=== PATIENT | male | born 1990 | race Caucasian/White ===

== ENCOUNTER 2023-03-21 13:25 | Emergency (ER) | payer OTHER, SELFPAY ==
--- NOTE | ~2023-03-21 | CT_ITS ---
EXAMINATION: CT ABDOMEN AND PELVIS WITHOUT CONTRAST CLINICAL INFORMATION: Left flank pain and hematuria. COMPARISON: None available. TECHNIQUE: Multidetector volumetric imaging was performed from the superior aspect of the liver through the pubic symphysis. Sagittal and coronal reformatted images were obtained on the technologist's workstation. This CT examination was performed using dose optimization techniques as appropriate, variously including the following: *Automated exposure control *Adjustment of mA and/or kV according to patient size (this includes techniques or standardized protocols for targeted exams where dose is matched to indication/reason for exam; i.e. extremities or head) *Use of iterative reconstruction technique DLP: 348 mGy-cm FINDINGS: LUNG BASES: The visualized lung bases are unremarkable. LIVER, GALLBLADDER, AND BILIARY TREE: The liver is normal in size, shape, and attenuation. No focal hepatic lesion or biliary ductal dilatation is present. The gallbladder is unremarkable with no evidence of radiopaque gallstones, gallbladder wall thickening, or obvious pericholecystic inflammatory changes. PANCREAS: Unremarkable. SPLEEN: Unremarkable. ADRENAL GLANDS: Unremarkable. KIDNEYS AND URETERS: The kidneys are normal in size, shape, and attenuation. No hydronephrosis, hydroureter, or calculi seen. No perinephric stranding. BLADDER: Unremarkable. GASTROINTESTINAL TRACT: Stool throughout the colon questionable for constipation. The small and large bowel are otherwise unremarkable. The appendix is unremarkable. ABDOMINAL WALL: No significant hernia is appreciated. LYMPH NODES: Normal. VASCULAR: Unremarkable. PELVIC VISCERA: Unremarkable. OSSEOUS STRUCTURES: Degenerative disc disease at L4-L5 and L5-S1. CT/CT abdomen pelvis wo IV con IMPRESSION: No stone or hydronephrosis. Fleischner guidelines were followed.
[2023-03-21 13:42] VITALS: BP 117/70; PULSE 69; RESP 18; TEMP 36.7; O2SAT 96; BMI 19.5
--- NOTE | 2023-03-21 13:43 | ED_ITS ---
HPI - Abdominal Pain General Chief Complaint: Urogenital-Male <BOBBI River - Last Filed: 03/21/23 13:45> Stated Complaint: Blood in urine/L side back pain <BOBBI River - Last Filed: 03/21/23 13:45> Time Seen by Provider: 03/21/23 14:10 <BOBBI River - Last Filed: 03/21/23 13:45> Source: patient <BOBBI Chi - Last Filed: 03/21/23 16:05> Mode of arrival: ambulatory <BOBBI Chi - Last Filed: 03/21/23 16:05> Limitations: no limitations <BOBBI Chi Last Filed: 03/21/23 16:05> History of Present Illness HPI narrative: Patient is a 32 year old assigned male at with no reported medical history presenting to the emergency department today after an episode of blood in his urine. Patient states that 2 days ago he had an episode of blood in his urine but has not had any since. Patient denies any dizziness, lightheadedness, abdominal pain, nausea, vomiting, fever, chills, blurry vision, double vision, loss of vision, chest pain, difficulty breathing, shortness of breath, back pain, night sweats, pain with urination, increased urinary frequency, increased urinary urgency, blood in his stool, syncope or a near syncopal episode, recent trauma or falls, bowel incontinence, bladder incontinence, bowel retention, bladder retention, or any other complaints at this time. <BOBBI Chi - Last Filed: 03/21/23 16:05> Related Data Home Medications: Previous Rx's Medication Instructions Recorded tizanidine 4 mg tablet 4 mg PO TID PRN for muscle spasm 12/28/21 #90 tabs <BOBBI River Last Filed: 03/21/23 13:45> Allergies/Adverse Reactions: Allergies Allergy/AdvReac Type Severity Reaction Status Date / Time acetaminophen [From TYLENOL] Allergy Mild BLOTCHY Verified 03/21/23 13:42 AND ITCHY amoxicillin Allergy Unknown anaphylaxis, Verified 03/21/23 13:42 hives penicillin G Allergy Unknown hives, Verified 03/21/23 13:42 anaphylaxis Penicillins [PENICILLINS] Allergy Unknown THROAT Verified 03/21/23 13:42 SWELLING AND RASH <Martina Bennett DC - Last Filed: 03/21/23 13:45> Review of Systems Constitutional: Reports no additional constitutional complaints, Denies chills, Denies fever(s) and Denies night sweats <BOBBI Chi Last Filed: 03/21/23 16:05> Eyes: Reports no additional eye complaints, Denies blurry vision, Denies change in vision, Denies diplopia, Denies eye discharge, Denies loss of vision and Denies eye pain <BOBBI Chi Last Filed: 03/21/23 16:05> Denies dizziness <BOBBI Chi Last Filed: 03/21/23 16:05> Cardiovascular: Reports no additional cardiovascular complaints, Denies chest pain, Denies lightheadedness, Denies Loss of Consciousness and Denies dyspnea <BOBBI Chi Last Filed: 03/21/23 16:05> Respiratory: Reports no additional respiratory complaints and Denies dyspnea <BOBBI Chi Last Filed: 03/21/23 16:05> Gastrointestinal: Reports no additional gastrointestinal complaints, Denies abdominal pain, Denies melena, Denies hematochezia, Denies change in bowel habits and Denies change in stool character <BOBBI Chi Last Filed: 03/21/23 16:05> Genitourinary: Reports no additional male genitourinary complaints, Reports hematuria, Denies oliguria, Denies difficulty urinating, Denies dysuria, Denies urinary frequency, Denies urinary hesitancy, Denies urinary incontinence and Denies urinary urgency <BOBBI Chi - Last Filed: 03/21/23 16:05> Musculoskeletal: Reports no additional musculoskeletal complaints, Denies numbness and Denies tingling <BOBBI Chi Last Filed: 03/21/23 16:05> Denies dizziness, Denies loss of vision, Denies numbness and Denies tingling <BOBBI Chi Last Filed: 03/21/23 16:05> Psychiatric: Reports no additional psychiatric complaints <BOBBI Chi Last Filed: 03/21/23 16:05> Endocrine: Reports no additional endocrine complaints <BOBBI Chi - Last Filed: 03/21/23 16:05> Hematologic/Lymphatic: Reports no additional hematologic/lymphatic complaints <BOBBI Chi - Last Filed: 03/21/23 16:05> Allergic/Immunologic: Reports no additional allergic/immunologic complaints <BOBBI Chi - Last Filed: 03/21/23 16:05> PMFSH Past Medical History Attestation statement: The following information was validated with the patient. <BOBBI Chi - Last Filed: 03/21/23 16:05> Source: old records reviewed and nursing notes reviewed <BOBBI Chi - Last Filed: 03/21/23 16:05> Social History Social History: Social History Advance Directives: No Advance Directives Information Provided: Yes <BOBBI River - Last Filed: 03/21/23 13:45> Physical Exam ED Vital Signs: Vital Signs - 24 hr 03/21/23 13:42 Temperature 98.1 F Pulse Rate 69 Respiratory Rate 18 Blood Pressure 117/70 Pulse Oximetry 96 Oxygen Delivery Method Room Air BMI result Body Mass Index 19.5 <BOBBI River - Last Filed: 03/21/23 13:45> Vital Signs - 24 hr 03/21/23 13:42 Temperature 98.1 F Pulse Rate 69 Respiratory Rate 18 Blood Pressure 117/70 Pulse Oximetry 96 Oxygen Delivery Method Room Air BMI result Body Mass Index 19.5 <BOBBI Chi Last Filed: 03/21/23 16:05> Const General: cooperative, no acute distress, alert and awake <BOBBI Chi - Last Filed: 03/21/23 16:05> Nutritional Appearance: well nourished <BOBBI Chi - Last Filed: 03/21/23 16:05> Orientation/consciousness: patient oriented x3 <BOBBI Chi - Last Filed: 03/21/23 16:05> Limitations: no limitations <BOBBI Chi Last Filed: 03/21/23 16:05> HENMT Head: Yes normal to inspection and Yes atraumatic <BOBBI Chi - Last Filed: 03/21/23 16:05> Ears: hearing grossly normal bilaterally and external ears normal <Flavia Moctezuma DC - Last Filed: 03/21/23 16:05> General nose exam: Normal external nose present, no nasal discharge noted and no epistaxis <Flavia Moctezuma [facility] Last Filed: 03/21/23 16:05> Face and sinus: Yes normal facial exam, No abrasion and No laceration <Flavia Moctezuma [facility] Last Filed: 03/21/23 16:05> Mouth: Normal oral and palatal mucosa present, no drooling and no muffled voice <Flavia Moctezuma [facility] Last Filed: 03/21/23 16:05> Eyes General: appearance normal, both eyes and all related structures <Flavia Evanselio [facility] Last Filed: 03/21/23 16:05> Periorbital: periorbital findings normal <Flavia Moctezuma [facility] Last Filed: 03/21/23 16:05> Eyelids: Yes eyelids normal <Flavia Moctezuma [facility] Last Filed: 03/21/23 16:05> Conjunctivae: conjunctivae normal <Flavia Moctezuma [facility] Last Filed: 03/21/23 16:05> Pupils: Equal, round and reactive pupils present <Flavia Evanselio [facility] Last Filed: 03/21/23 16:05> EOM: EOMs intact bilaterally <Flavia Evanselio [facility] Last Filed: 03/21/23 16:05> Neck Neck: Yes normal visual inspection, Yes full ROM and Yes no lymphadenopathy <Cheo Evanselio DC - Last Filed: 03/21/23 16:05> Chest Chest palpation & inspection: normal inspection of the chest <Flavia Rhianna [facility] Last Filed: 03/21/23 16:05> Resp Effort & Inspection: normal respiratory effort and able to speak in complete sentences <Flavia Rhianna DC - Last Filed: 03/21/23 16:05> GI Inspection: Yes normal to inspection <Flavia Evanselio [facility] Last Filed: 03/21/23 16:05> Palpation (GI): Soft to palpation, not firm, nontender and no guarding <Flavia Rhianna DC - Last Filed: 03/21/23 16:05> General: Yes no CVA tenderness <Flavia Evanselio PA - Last Filed: 03/21/23 16:05> Male General Exam: Yes normal external exam <Flaviaholly EvansBOBBI ballard - Last Filed: 03/21/23 16:05> Back/Spine/Pelvis Back: no CVA tenderness <Flavia Evanselio PA - Last Filed: 03/21/23 16:05> Neuro General: patient oriented x3 and moves all extremities <BOBBI Chi - Last Filed: 03/21/23 16:05> Cranial nerves: Yes Equal, round and reactive pupils present <Flavia Moctezuma, PA - Last Filed: 03/21/23 16:05> Cognition (Neuro): normal cognition <Flavia BOBBI Moctezuma - Last Filed: 03/21/23 16:05> Motor exam (neuro): 5/5 motor strength present throughout <BOBBI Chi - Last Filed: 03/21/23 16:05> Sensory Exam: Normal double simultaneous stimulation for sensation <Flavia Moctezuma PA - Last Filed: 03/21/23 16:05> Coordination: [id number] test normal <Flavia Moctezuma, DC - Last Filed: 03/21/23 16:05> Extrem General: Yes normal to inspection, Yes full ROM and Yes capillary refill normal <Flavia Rhianna PA - Last Filed: 03/21/23 16:05> Psych Appearance: grossly normal <BOBBI Chi - Last Filed: 03/21/23 16:05> Mental Status: mental status grossly normal <BOBBI Chi - Last Filed: 03/21/23 16:05> Affect: normal affect <BOBBI Chi - Last Filed: 03/21/23 16:05> Attitude: cooperative <BOBBI Chi - Last Filed: 03/21/23 16:05> Thought process: Normal thought process present <BOBBI Chi - Last Filed: 03/21/23 16:05> Thought content: Normal thought content present <BOBBI Chi - Last Filed: 03/21/23 16:05> Insight: Good insight present (Psych) <BOBBI Chi - Last Filed: 03/21/23 16:05> Course Course Course Narrative: RME - 32 yo male presents to the ER for evaluation of flank pain that started yesterday along with drops of blood in his urine a few times 3 days ago. +pain with urination and sensation of incomplete emptying. No vomiting or fevers. Plan: UA, labs, dry CT abd/pelvis to r/o stone <BOBBI River - Last Filed: 03/21/23 13:45> Medical Decision Making Medical Decision Making [facility] Narrative: Patient is a 32 year old assigned male at with no reported medical history presenting to the emergency department today after an episode of hematuria. Patient's physical exam was unremarkable. Patient's blood work was unremarkable. Patient's urine showed no acute process. Patient's abdomen/pelvis CT showed no acute process. I explained my physical exam findings as well as all test results to the patient. I answered all questions asked by the patient. I stressed the importance of the patient taking his medication as prescribed. I stressed the importance of the patient following up with his primary care provider. I stressed the importance of the patient returning to the emergency department immediately if his symptoms were to worsen or if he were to develop any dizziness, shortness of breath, difficulty breathing, chest pain, blurry vision, loss of vision, nausea, vomiting, abdominal pain, fever, chills, back pain, or any other complaints. Patient verbalized agreement and understanding with this treatment plan and discharge. <BOBBI Chi - Last Filed: 03/21/23 16:05> Differential Diagnosis Differential Diagnoses: The differential diagnosis associated with the presentation includes <BOBBI Chi - Last Filed: 03/21/23 16:05> hematuria, passed stone <BOBBI Chi - Last Filed: 03/21/23 16:05> Lab Data [facility] Lab Attestation statement: I reviewed the patient's lab results. <BOBBI Chi - Last Filed: 03/21/23 16:05> Result Diagrams: 03/21/23 14:39 03/21/23 14:39 <BOBBI River - Last Filed: 03/21/23 13:45> Labs: Lab Results 03/21/23 03/21/23 03/21/23 Range/Units 14:39 14:39 14:39 WBC 7.2 (4.8-10.8) X10*3/uL RBC 4.25 L (4.60-5.80) X10*6/uL Hgb 12.8 L (14.0-18.0) g/dl Hct 38.4 L (42.0-52.0) % MCV 90.4 (80.0-98.0) fL MCH 30.1 (27.0-33.0) pg MCHC 33.3 (31.0-36.0) g/dl RDW 12.2 (11.0-16.0) % Plt Count 178 (160-400) X10*3/uL MPV 9.4 (9.4-12.4) fL Immature Gran % (Auto) 0.3 (0.0-0.4) % Neut % (Auto) 64.7 (45-73) % Lymph % (Auto) 27.1 (20-40) % [place] % (Auto) 6.9 (2-11) % Eos % (Auto) 0.7 (0-4) % Baso % (Auto) 0.3 (0-2) % Lymph # (Auto) 2.0 (1.2-4.9) X10*3/uL [place] # (Auto) 0.5 (0.1-1.2) X10*3/uL Eos # (Auto) 0.1 (0.0-0.4) X10*3/uL Baso # (Auto) 0.0 (0.0-0.2) X10*3/uL Abs Immat Gran (auto) 0.02 (0.00-0.03) X10*3/uL Absolute Neuts (auto) 4.7 (2.0-8.3) x10*3/uL Absolute Nucleated RBC 0.000 (0.0-0.012) X10*3/uL Nucleated RBC % (auto) 0.0 (0.0-0.2) /100WBC Sodium 141 (135-145) mmol/L Potassium 4.0 (3.3-5.1) mmol/L Chloride 104 (96-108) mmol/L Carbon Dioxide 30 H (22-29) mmol/L Anion Gap 11 L (12-20) BUN 10 (9-16) mg/dL Creatinine 0.77 (0.5-1.4) mg/dL Estim Creat Clear Calc 130.5 Estimated GFR > 60 Random Glucose 102 (60-115) mg/dL Calcium 8.8 (8.4-10.2) mg/dL Magnesium 1.8 (1.6-2.6) mg/dL Total Bilirubin 0.4 (0.0-1.0) mg/dL Direct Bilirubin 0.1 (0.0-0.5) mg/dL AST 31 (5-37) U/L ALT 19 (0-40) U/L Alkaline Phosphatase 53 (39-117) U/L Total Protein 5.9 L (6.5-8.0) g/dL Albumin 4.1 (3.5-5.0) g/dL Urine Color Yellow Urine Appearance Clear Urine pH 6.0 (5.0-9.0) Ur Specific [place] 1.020 (1.005-1.025) Urine Protein Negative (Neg-Trace) mg/dL Urine Glucose (UA) Negative (Negative) mg/dL Urine Ketones Trace (Negative) mg/dL Urine Blood Negative (Negative) Urine Nitrite Negative (Negative) Ur Leukocyte Esterase Negative (Negative) <BOBBI River - Last Filed: 03/21/23 13:45> Lab Results 03/21/23 03/21/23 03/21/23 Range/Units 14:39 14:39 14:39 WBC 7.2 (4.8-10.8) X10*3/uL RBC 4.25 L (4.60-5.80) X10*6/uL Hgb 12.8 L (14.0-18.0) g/dl Hct 38.4 L (42.0-52.0) % MCV 90.4 (80.0-98.0) fL MCH 30.1 (27.0-33.0) pg MCHC 33.3 (31.0-36.0) g/dl RDW 12.2 (11.0-16.0) % Plt Count 178 (160-400) X10*3/uL MPV 9.4 (9.4-12.4) fL Immature Gran % (Auto) 0.3 (0.0-0.4) % Neut % (Auto) 64.7 (45-73) % Lymph % (Auto) 27.1 (20-40) % [place] % (Auto) 6.9 (2-11) % Eos % (Auto) 0.7 (0-4) % Baso % (Auto) 0.3 (0-2) % Lymph # (Auto) 2.0 (1.2-4.9) X10*3/uL [place] # (Auto) 0.5 (0.1-1.2) X10*3/uL Eos # (Auto) 0.1 (0.0-0.4) X10*3/uL Baso # (Auto) 0.0 (0.0-0.2) X10*3/uL Abs Immat Gran (auto) 0.02 (0.00-0.03) X10*3/uL Absolute Neuts (auto) 4.7 (2.0-8.3) x10*3/uL Absolute Nucleated RBC 0.000 (0.0-0.012) X10*3/uL Nucleated RBC % (auto) 0.0 (0.0-0.2) /100WBC Sodium 141 (135-145) mmol/L Potassium 4.0 (3.3-5.1) mmol/L Chloride 104 (96-108) mmol/L Carbon Dioxide 30 H (22-29) mmol/L Anion Gap 11 L (12-20) BUN 10 (9-16) mg/dL Creatinine 0.77 (0.5-1.4) mg/dL Estim Creat Clear Calc 130.5 Estimated GFR > 60 Random Glucose 102 (60-115) mg/dL Calcium 8.8 (8.4-10.2) mg/dL Magnesium 1.8 (1.6-2.6) mg/dL Total Bilirubin 0.4 (0.0-1.0) mg/dL Direct Bilirubin 0.1 (0.0-0.5) mg/dL AST 31 (5-37) U/L ALT 19 (0-40) U/L Alkaline Phosphatase 53 (39-117) U/L Total Protein 5.9 L (6.5-8.0) g/dL Albumin 4.1 (3.5-5.0) g/dL Urine Color Yellow Urine Appearance Clear Urine pH 6.0 (5.0-9.0) Ur Specific [place] 1.020 (1.005-1.025) Urine Protein Negative (Neg-Trace) mg/dL Urine Glucose (UA) Negative (Negative) mg/dL Urine Ketones Trace (Negative) mg/dL Urine Blood Negative (Negative) Urine Nitrite Negative (Negative) Ur Leukocyte Esterase Negative (Negative) <BOBBI Chi Filed: 03/21/23 16:05> Independent Interpretation I performed an independent interpretation of an: CT Scan <BOBBI Chi Filed: 03/21/23 16:05> Interpretation: My interpretation is in agreement with the radiologist's impression of this imaging study. EXAMINATION: CT ABDOMEN AND PELVIS WITHOUT CONTRAST? CLINICAL INFORMATION: Left flank pain and hematuria.? COMPARISON: None available. TECHNIQUE: Multidetector volumetric imaging was performed from the superior aspect of the liver through the pubic symphysis. Sagittal and coronal reformatted images were obtained on the technologist's workstation.? This CT examination was performed using dose optimization techniques as appropriate, variously including the following: *Automated exposure control *Adjustment of mA and/or kV according to patient size (this includes techniques or standardized protocols for targeted exams where dose is matched to indication/reason for exam; i.e. extremities or head) *Use of iterative reconstruction technique DLP: 348 mGy-cm FINDINGS: LUNG BASES: The visualized lung bases are unremarkable.? LIVER, GALLBLADDER, AND BILIARY TREE: The liver is normal in size, shape, and attenuation. No focal hepatic lesion or biliary ductal dilatation is present. The gallbladder is unremarkable with no evidence of radiopaque gallstones, gallbladder wall thickening, or obvious pericholecystic inflammatory changes.? PANCREAS: Unremarkable.? SPLEEN: Unremarkable.? ADRENAL GLANDS: Unremarkable.? KIDNEYS AND URETERS: The kidneys are normal in size, shape, and attenuation. No hydronephrosis, hydroureter, or calculi seen. No perinephric stranding. ? BLADDER: Unremarkable.? GASTROINTESTINAL TRACT: Stool throughout the colon questionable for constipation. The small and large bowel are otherwise unremarkable. The appendix is unremarkable.? ABDOMINAL WALL: No significant hernia is appreciated.? LYMPH NODES: Normal. VASCULAR: Unremarkable. PELVIC VISCERA: Unremarkable.? OSSEOUS STRUCTURES: Degenerative disc disease at L4-L5 and L5-S1.? CT/CT abdomen pelvis wo IV con IMPRESSION: No stone or hydronephrosis. ? Fleischner guidelines were followed. Dictated By: Zoë Duran MD Signed By: Electronically signed by Zoë Duran MD 03/21/23 1437 <BOBBI Chi - Last Filed: 03/21/23 16:05> Discharge Plan Discharge Clinical Impression: Hematuria <BOBBI River - Last Filed: 03/21/23 13:45> Patient Disposition: Home, Self-Care <BOBBI River - Last Filed: 03/21/23 13:45> Instructions: Hematuria (ED) <BOBBI River - Last Filed: 03/21/23 13:45> Additional Instructions: Follow up with your primary care provider. Return to the emergency dep artment immediately if your symptoms worsen or if you develop any dizziness, shortness of breath, difficulty breathing, chest pain, blurry vision, loss of vision, nausea, vomiting, abdominal pain, fever, chills, back pain, or any other complaints. <BOBBI River - Last Filed: 03/21/23 13:45> Prescriptions: No Action tizanidine 4 mg tablet 4 mg PO TID PRN (Reason: for muscle spasm) Qty: 90 0RF <BOBBI River - Last Filed: 03/21/23 13:45> Referrals: [facility] Family Medicine [Provider Group] (Call to establish and follow up with a primary care provider. If you already have a primary care provider, please follow up with them.) [facility] Primary Care, Abhijit [Provider Group] (Call to establish and follow up with a primary care provider. If you already have a primary care provider, please follow up with them.) [facility] [[facility]] (Call to establish and follow up with a primary care provider. If you already have a primary care provider, please follow up with them.) <BOBBI River - Last Filed: 03/21/23 13:45> Stand Alone Forms: Work/School Release <BOBBI River - Last Filed: 03/21/23 13:45> Interventions: ED Discharge Assessment Last Done: 03/21/23 15:34 <BOBBI River - Last Filed: 03/21/23 13:45> Discharge Date/Time: 03/21/23 15:35 <BOBBI River - Last Filed: 03/21/23 13:45> Print Language: German <BOBBI River - Last Filed: 03/21/23 13:45>
[2023-03-21 14:43] LABS: MANUAL DIFF FLAG NO
[2023-03-21 14:45] LABS: Appearance Urine Clear; Color Urine Yellow; Glucose Urine UA Negative (Negative); Leukocyte Esterase Urine Negative (Negative); Nitrite Urine Negative (Negative); Urine Blood Negative (Negative); Urine Ketones Trace mg/dL (Negative); Urine Protein Negative (Neg-Trace)
[2023-03-21 14:46] LABS: Basophils Percent Auto 0.3 % (0-2); Eosinophils Absolute Auto 0.1 X10*3/uL (0.0-0.4); Eosinophils Percent Auto 0.7 % (0-4); Hematocrit 38.4 % (42.0-52.0); Hemoglobin 12.8 g/dl (14.0-18.0); Imm Gran Abs Auto 0.02 X10*3/uL (0.00-0.03); Imm Gran Pct Auto 0.3 % (0.0-0.4); Lymphocytes Percent Auto 27.1 % (20-40); Mean Corpuscular HGB Conc 33.3 g/dl (31.0-36.0); Mean Corpuscular Hemoglobin 30.1 pg (27.0-33.0); Mean Corpuscular Volume 90.4 fL (80.0-98.0); Mean Platelet Volume 9.4 fL (9.4-12.4); Monocytes Absolute Auto 0.5 X10*3/uL (0.1-1.2); Monocytes Percent Auto 6.9 % (2-11); Neutrophils Absolute Auto 4.7 x10*3/uL (2.0-8.3); Neutrophils Percent Auto 64.7 % (45-73); Platelet Count 178 X10*3/uL (160-400); Red Blood Count 4.25 X10*6/uL (4.60-5.80); Red Cell Distribution Width 12.2 % (11.0-16.0); White Blood Count 7.2 X10*3/uL (4.8-10.8)
[2023-03-21 15:01] LABS: Alanine Aminotransferase 19 U/L (0-40); Albumin Level 4.1 g/dL (3.5-5.0); Alkaline Phosphatase 53 U/L (39-117); Anion Gap 11 (12-20); Aspartate Amino Transferase 31 U/L (5-37); Bilirubin Direct 0.1 mg/dL (0.0-0.5); Bilirubin Total 0.4 mg/dL (0.0-1.0); Blood Urea Nitrogen 10 mg/dL (9-16); Calcium 8.8 mg/dL (8.4-10.2); Carbon Dioxide 30 mmol/L (22-29); Chloride 104 mmol/L (96-108); Creatinine Clr Calc Pharmacy 130.5; Estimated Glomerular Filt Rate > 60; Glucose Random 102 mg/dL (60-115); Magnesium 1.8 mg/dL (1.6-2.6); Sodium 141 mmol/L (135-145); Total Protein 5.9 g/dL (6.5-8.0)
== END 2023-03-21 15:35 | disposition home or self-care (01) ==
PROVIDERS: Physician Assistant; Emergency Provider Emergency Medicine
DX: R31.9 Hematuria, unspecified (principal); R10.9 Unspecified abdominal pain; M54.50 Low back pain, unspecified; Z79.899 Other long term (current) drug therapy
CPT/HCPCS: 36415; 74176; 80048; 80076; 81003; 83735; 85025; 99282; 99284

== ENCOUNTER 2025-09-26 10:00 | Outpatient (AMB) | payer OTHER, SELFPAY ==
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
[2025-09-26 10:07] VITALS: BP 110/70; PULSE 64; TEMP 36.3; O2SAT 95; BMI 19.5
== END 2025-09-26 11:10 | disposition home or self-care (01) ==
PROVIDERS: Visit Provider Internal Medicine
DX: Z00.00 Encounter for general adult medical examination without abnormal findings (principal); M25.562 Pain in left knee; M25.511 Pain in right shoulder; G89.29 Other chronic pain; F33.1 Major depressive disorder, recurrent, moderate; Z88.9 Allergy status to unspecified drugs, medicaments and biological substances; F11.91 Opioid use, unspecified, in remission

== ENCOUNTER → 2025-09-26 10:00 | Outpatient (BNVA) | payer OTHER, SELFPAY | PROVIDERS: Visit Provider Internal Medicine | DX: Z00.00 Encounter for general adult medical examination without abnormal findings (principal); M25.562 Pain in left knee; M25.511 Pain in right shoulder; G89.29 Other chronic pain; F33.1 Major depressive disorder, recurrent, moderate; F11.91 Opioid use, unspecified, in remission; Z88.1 Allergy status to other antibiotic agents; Z88.6 Allergy status to analgesic agent | CPT/HCPCS: 99202; 99385 ==

== ENCOUNTER 2025-10-04 10:54 | Outpatient (REF) | payer OTHER, SELFPAY ==
--- NOTE | ~2025-10-04 | XR_ITS ---
EXAMINATION: XR KNEE, LEFT CLINICAL INFORMATION: M25.569 - Pain in unspecified knee COMPARISON: None available. TECHNIQUE: Two views of the left knee. FINDINGS: No visible acute fracture, dislocation or suspicious bony lesion. Small suprapatellar joint fluid. No abnormal soft tissue calcification. XR/XR knee LT 2V IMPRESSION: No acute osseous findings Electronically signed by: Gold Hudson MD 10/04/2025 04:14 PM [facility]
--- NOTE | ~2025-10-04 | XR_ITS ---
EXAMINATION: XR SHOULDER, RIGHT CLINICAL INFORMATION: M25.519 - Pain in unspecified shoulder COMPARISON: None available. TECHNIQUE: AP external rotation, Grashey, scapular Y, and axillary views of the right shoulder. FINDINGS: There is an ossification adjacent the distal superior clavicle. There is subtle degenerative change in the AC joint. There is no AC joint separation. There is no glenohumeral dislocation or degeneration. XR/XR shoulder RT min 2V IMPRESSION: Essentially unremarkable right shoulder aside from minimal AC joint degenerative change. Electronically signed by: Bucky Fuentes MD 10/04/2025 11:53 AM [facility]
[2025-10-04 12:40] LABS: Hematocrit 40.7 % (42.0-52.0); Hemoglobin 13.8 g/dl (14.0-18.0); Mean Corpuscular HGB Conc 33.9 g/dl (31.0-36.0); Mean Corpuscular Hemoglobin 30.7 pg (27.0-33.0); Mean Corpuscular Volume 90.4 fL (80.0-98.0); NRBC Abs Auto 0.000 X10*3/uL (0.0-0.012); NRBC Pct Auto 0.0 /100WBC (0.0-0.2); Platelet Count 257 X10*3/uL (160-400); Red Blood Count 4.50 X10*6/uL (4.60-5.80); White Blood Count 5.6 X10*3/uL (4.8-10.8)
[2025-10-04 13:54] LABS: Alanine Aminotransferase 35 U/L (0-40); Albumin Level 4.7 g/dL (3.5-5.0); Alkaline Phosphatase 52 U/L (39-117); Anion Gap 11 (12-20); Aspartate Amino Transferase 51 U/L (5-37); Blood Urea Nitrogen 16 mg/dL (9-16); Calcium 9.3 mg/dL (8.4-10.2); Carbon Dioxide 30 mmol/L (22-29); Chloride 105 mmol/L (96-108); Cholesterol 173 mg/dL (<200); Estimated Glomerular Filt Rate > 60; HDL Cholesterol 55 mg/dL (>40); Potassium 5.0 mmol/L (3.3-5.1); Sodium 141 mmol/L (135-145); Total Protein 6.4 g/dL (6.5-8.0); Triglycerides 46 mg/dL (<150)
[2025-10-04 14:57] LABS: HBS Num1 4.09 mIU/mL (0-7.99); HBc Num1 0.05 S/CO (0.00-0.79); HBsAGNum1 0.33 S/CO (0.00-0.99); HIV Num 1 0.05 S/CO (0.00-0.99); Hepatitis B Surface Antigen Negative (Negative); ~HepC Num1 0.06 S/CO (0.00-0.79); ~Hepatitis B Surface Antibody NONREACTIVE (Nonreactive); ~Hepatitis C Antibody Nonreactive (Nonreactive)
== END 2025-10-04 10:55 | disposition home or self-care (01) ==
LOC: HO.XRAY 10:54
PROVIDERS: PCP Internal Medicine; Visit Provider Internal Medicine
DX: Z00.00 Encounter for general adult medical examination without abnormal findings (principal); Z11.4 Encounter for screening for human immunodeficiency virus [HIV]; Z11.59 Encounter for screening for other viral diseases; M25.562 Pain in left knee; M25.511 Pain in right shoulder
CPT/HCPCS: 36415; 73030; 73560; 80053; 80061; 82306; 83036; 84443; 85027; 86704; 86706; 86803; 87340; 87389